=== PATIENT | female | born 1965 | race Caucasian/White ===

== ENCOUNTER 2024-11-18 16:33 | Emergency (ER) | payer MEDICAID, OTHER ==
[~2024-11-18] VITALS: Ht 167.6 cm; Wt 91.0 kg
[~2024-11-18 16:33] MED LIST: FLUC150T46 PO; [UNRECOGNIZED DRUG - CODE] VG
[2024-11-18 16:51] VITALS: O2SAT 97
[2024-11-18 18:30] LABS: BASOPHILS % 0.6 % (0.0-2.0); EOSINOPHILS % 1.5 % (0.0-5.0); HEMATOCRIT. 40.4 % (36.0-48.0); HEMOGLOBIN. 13.5 g/dL (12.0-16.0); LYMPHOCYTES % 46.0 % (20.0-50.0); MEAN PLATELET VOLUME 8.3 fl (7.4-10.4); MONOCYTES % 6.2 % (2.0-8.0); NEUTROPHILS % 45.7 % (40.0-76.0); PLATELET 277 x1000/uL (130-400); RED BLOOD CELL COUNT 4.85 mill/uL (4.2-5.4); RED CELL DISTRIBUTION WIDTH 13.8 % (11.6-14.6)
[2024-11-18 18:48] LABS: CREATININE 0.8 mg/dL (0.6-1.0); TROPONIN I HIGH SENSITIVITY < 4 ng/L (3.0-34)
[2024-11-18 18:49] LABS: UREA NITROGEN BLOOD 13 mg/dL (9-23)
[2024-11-18 18:50] LABS: ASPARTATE AMINOTRANSFERASE 25 IU/L (<34)
[2024-11-18 18:51] LABS: BILIRUBIN DIRECT < 0.1 mg/dL (<=3.0); BILIRUBIN TOTAL 0.3 mg/dL (0.1-1.0); PROTEIN TOTAL 7.0 g/dL (6.0-8.3)
[2024-11-18 19:20] LABS: CLARITY URINE CLEAR (CLEAR); COLOR URINE YELLOW (YELLOW); GLUCOSE URINE NEGATIVE (NEGATIVE); KETONES URINE NEGATIVE (NEGATIVE); LEUKOCYTE ESTERASE URINE NEGATIVE (NEGATIVE); NITRITE URINE NEGATIVE (NEGATIVE); OCCULT BLOOD URINE NEGATIVE (NEGATIVE); PH URINE 7.5 (4.5-8.0); PROTEIN URINE NEGATIVE (NEGATIVE); SPECIFIC GRAVITY URINE 1.013 (1.005-1.030); UROBILINOGEN URINE 1.0 E.U./dL (0.2-1.0)
[2024-11-18] MEDS: ACETAMINOPHEN 325MG TABLET PO ONE (19:52)
[2024-11-18] MEDS: KETOROLAC 15MG/ML VIAL IM ONE (19:52)
[2024-11-18] MEDS: LIDOCAINE 5% PATCH TOP STA (19:53)
[2024-11-18 20:03] LABS: INR 0.9
[2024-11-18 20:23] VITALS: BP 167/83; PULSE 68; RESP 12; TEMP 36.7; O2SAT 99
[2024-11-18] MEDS ORDERED: KETO10TA2 MT (20:47)
[2024-11-18] MEDS ORDERED: LIDO700A30 TP (20:47)
== END 2024-11-18 21:10 | disposition home or self-care (01) ==
LOC: ER 16:33
DX: M54.50 Low back pain, unspecified (principal); R10.9 Unspecified abdominal pain; M25.511 Pain in right shoulder; M25.512 Pain in left shoulder; K58.9 Irritable bowel syndrome, unspecified; Z90.710 Acquired absence of both cervix and uterus
CPT/HCPCS: 99285; 74176; 71045; 80076; 80048; 81003; 83690; 85025; 85610; 84484; 36415; 72100; 93005; 96372; J1885